=== PATIENT | female | born 1965 | race Two or more races ===

== ENCOUNTER → 2019-01-06 | Outpatient (CLI) | payer OTHER ==
[~2019-01-06] MED LIST: CEPH-443 PO; HYDR-4011 PO; IBUP-1542 PO
--- NOTE | 2019-01-06 10:57 | CONS ---
Consult Date/Type/Reason Admit Date/Time Initial Consult Date Date/Time of Note DATE: 01/06/19 TIME: 10:53 Subjective 53-year-old [id number] female returns to clinic today for one-month follow-up for open right index finger tuft fracture. The injury occurred generally 2018. Overall she is doing very well. She states her pain is none unless she bumps the tip of her index finger. She denies any numbness and tingling. She is no longer wearing the splint. She has been working on range of motion exercises. Objective Vitals Weight: 180 pounds Height: 5 foot 1 inches Temperature: 90.2 Heart Rate: 82 Blood Pressure: 127/65 Respiratory Rate: 12 Exam General: Awake, alert, in no acute distress, pleasant and cooperative Heart: regular rhythm Lungs: breathing comfortably, no tachypnea or dyspnea MUSCULOSKELETAL: Right hand: There is minimal swelling of the distal tip of the right index finger. Nail is in the nail bed. Laceration is healed no drainage. No erythema. Sensation intact to light touch along the ulnar and radial aspect of the finger. Patient is able to fully extend and flex her MTP, PIP. Limited flexion of DIP to about 20-30 degrees secondary to swelling and pain stiffness. Sensation intact to light touch in a median, ulnar, radial, and axillary distribution. Motor is intact in a median, ulnar, radial, anterior interosseous, and posterior interosseous nerve distribution. Radial and ulnar artery are +2. Wrist extension and flexion are intact. Compartments are soft. Results/Medications Home Meds Active Scripts Hydrocodone/Acetaminophen ([place] 5-325 Tablet) 1 Each Tablet, 1 TAB PO Q6H PRN for PAIN, #15 TAB Prov:EDWARD SCHNEIDER PA-C 12/09/18 Cephalexin* (Keflex*) 500 Mg Capsule, 500 MG PO QID for 7 Days, CAP Prov:EDWARD SCHNEIDER PA-C 12/09/18 Ibuprofen* (Motrin*) 600 Mg Tab, 600 MG PO Q6H PRN for PAIN AND OR ELEVATED TEMP, #30 TAB Prov:EDWARD SCHNEIDER PA-C 12/09/18 Imaging 3 views of the right index finger were obtained in clinic today. Images were personally reviewed by myself. Shows a comminuted tuft fracture of the right index finger. There is no interval displacement from previous x-rays. No significant healing is appreciated. Assessment/Plan Hospital Course (Demo Recall) 53-year-old [id number] female 1 month status post open right index finger tuft fracture. She is doing very well. There are no signs of infection. Her range of motion has significantly improved since last visit. Her DIP is still stiff which would be expected. I reviewed range of motion exercises for both her MTP, PIP, DIP joints. She should work on these at home. If she does not have continued improvement of range of motion of like to see her in 2 weeks so I can reevaluate her and set her up for occupational therapy. Otherwise I like to see her in 4 weeks for x-rays. PIERRE YANG MD Jan 06, 2019 10:57
--- NOTE | 2019-01-07 05:40 | RADRPT ---
PROCEDURE: XR Right Finger(s), 2 or More Views CLINICAL INDICATION: PAIN TECHNIQUE: Frontal, lateral and oblique views of finger(s) of the right hand. COMPARISON: 12/20/2018 FINDINGS: BONES/JOINTS: Comminuted fracture of the second distal phalangeal tuft is again seen. There has no t been marked bony resorption or definite callus formation. Soft tissue edema of the finger tip is ag ain seen. No new abnormality is seen. No soft tissue gas or foreign body is seen. SOFT TISSUES: See above. OTHER FINDINGS: IMPRESSION: No appreciable interval healing of comminuted second distal phalangeal tuft fracture. RPTAT: [facility] Physician [place] Date Time Electronically viewed and signed by Roslyn Bajwa Physician on 01/07/2019 05:40 DONTRELL/
== END | disposition home or self-care (01) ==
LOC: HKI 10:25
PROVIDERS: ATTEND Orthopaedic Surgery Adult Reconstructive Orthopaedic Surgery
DX: S62.600D Fracture of unspecified phalanx of right index finger, subsequent encounter for fracture with routine healing (principal); X58.XXXD Exposure to other specified factors, subsequent encounter
CPT/HCPCS: 73140; Z7500; G0463

== ENCOUNTER → 2019-02-21 | Outpatient (CLI) | payer OTHER ==
--- NOTE | 2019-02-21 09:49 | CONS ---
Consult Date/Type/Reason Admit Date/Time Initial Consult Date Date/Time of Note DATE: 02/21/19 TIME: 09:44 Subjective 53-year-old female follows up today 2 months status post open tuft fracture of right index finger. She has been treated nonoperatively. She has been work on range of motion exercises at home. She states her pain is minimal to none. She has much better function than last visit 1 month ago. She states her range of motion is significantly better. We will bothers her the most today is the deformity of her finger. In the interim her nail has fallen off. Denies numbness and tingling. Objective Exam General: Awake, alert, in no acute distress, pleasant and cooperative Heart: regular rhythm Lungs: breathing comfortably, no tachypnea or dyspnea MUSCULOSKELETAL: Right hand: There is minimal swelling of the distal tip of the right index finger. The nail has fallen off. The nailbed is intact.. Laceration is healed no drainage. No erythema. Sensation intact to light touch along the ulnar and radial aspect of the finger. Patient is able to fully extend and flex her MTP, and almost fully flex her PIP. Limited flexion of DIP to about 30 degrees secondary to swelling and stiffness. There is gross deformity of the tip of the index finger. It is bulbous. It is slightly ulnar deviated. Sensation intact to light touch in a median, ulnar, radial, and axillary distribution. Motor is intact in a median, ulnar, radial, anterior interosseous, and posterior interosseous nerve distribution. Radial and ulnar artery are +2. Wrist extension and flexion are intact. Compartments are soft. Results/Medications Home Meds Active Scripts Hydrocodone/Acetaminophen ([place] 5-325 Tablet) 1 Each Tablet, 1 TAB PO Q6H PRN for PAIN, #15 TAB Prov:EDWARD SCHNEIDER PA-C 12/09/18 Cephalexin* (Keflex*) 500 Mg Capsule, 500 MG PO QID for 7 Days, CAP Prov:EDWARD SCHNEIDER PA-C 12/09/18 Ibuprofen* (Motrin*) 600 Mg Tab, 600 MG PO Q6H PRN for PAIN AND OR ELEVATED TEMP, #30 TAB Prov:EDWARD SCHNEIDER PA-C 12/09/18 Imaging 3 views of the right index finger were obtained in clinic today. Images were personally reviewed by myself. Shows a comminuted tuft fracture of the right index finger. There is no interval displacement or healing from previous x- rays. No significant healing is appreciated. Assessment/Plan Hospital Course (Demo Recall) 53-year-old female 2 months status post open tuft fracture of the right index finger. She was originally seen in the emergency department and was treated there. Given the extremely small fracture fragment and comminution nonoperative treatment was continued. She does have minimal to no pain which leads me to believe this is a fibrous union. However unfortunately once the nail has fallen off and obvious deformity is better appreciated. The patient is concerned about this and it is reasonable for her to see a hand surgeon for evaluation and treatment for the deformity of her index finger. Otherwise there is no signs of infection. Her range of motion has improved. I encouraged her to continue aggressive range of motion exercises at home. She should follow-up PRN with me and a referral will be placed for hand surgeon. PIERRE YANG MD Feb 21, 2019 09:49
--- NOTE | 2019-02-21 16:41 | RADRPT ---
PROCEDURE: XR Finger CLINICAL INDICATION: Right index finger pain TECHNIQUE: 3 views of the right index finger were obtained. COMPARISON: DR HAND 01/06/2019 FINDINGS: There is a comminuted mildly displaced fracture at the tip of the distal phalanx. No significant heal ing changes are identified. Alignment is normal. Joint spaces are preserved. There is mild soft tissue swelling. IMPRESSION: 1. Comminuted mildly displaced fracture at the tip of the second distal phalanx as above. RPTAT: [facility] .Eros Terrell MD, MD Date Time Electronically viewed and signed by .Eros Terrell MD, on 02/21/2019 16:41 .K/
== END | disposition home or self-care (01) ==
LOC: HKI 09:13
PROVIDERS: ATTEND Orthopaedic Surgery Adult Reconstructive Orthopaedic Surgery
DX: S62.600D Fracture of unspecified phalanx of right index finger, subsequent encounter for fracture with routine healing (principal); X58.XXXD Exposure to other specified factors, subsequent encounter
CPT/HCPCS: 73140; Z7500; G0463